=== PATIENT | male | born 1935 | race African-American/Black ===

== ENCOUNTER 2020-05-27 21:42 | Inpatient (IN) | payer MEDICARE ==
[2020-05-27 23:39] LABS: Hematocrit 42.9 % (35.5-45.6); Hemoglobin 14.5 gm/dl (11.8-15.2); Mean Corpuscular HGB Conc 34 % (32-34); Mean Corpuscular Volume 90 fl (84-94); Platelet Count 210 K/mm3 (140-440); Red Blood Count 4.75 M/mm3 (3.65-5.03)
[2020-05-28 00:01] LABS: Calcium 9.2 mg/dL (8.4-10.2)
[2020-05-28] MEDS ORDERED: ACETAMINOPHEN 500 MG TAB PO ONE (01:39)
[2020-05-28] MEDS ORDERED: SODIUM CHLORIDE 0.9% 500 ML 500 ML IV ONE (01:39)
--- NOTE | 2020-05-28 01:40 | Emergency Department Report ---
ED Fever HPI - General Chief Complaint: Fever Stated Complaint: FEVER Time Seen by Provider: 05/28/20 01:34 Source: patient, family ([id number] give history) Exam Limitations: no limitations - History of Present Illness Initial Comments: This is an 84-year-old male with history of hypertension lipidemia osteoarthritis who presents with fever chills which began today. He denies cough. Denies shortness of breath. No known sick contacts. He denies abdominal pain. He states that he feels better now. Patient denies headache, cough, chest pain, abdominal pain. In 2012 according to electronic medical record, patient was treated for liver abscess and sepsis. I use language phone line for [place] interpretation. Timing/Duration: this afternoon Fever Severity/Quality: subjective Fever Therapy ASSET MANAGER: none Associated Symptoms: denies symptoms ED Review of Systems ROS: Stated complaint: FEVER Other details as noted in HPI Comment: All other systems reviewed and negative Constitutional: chills, fever Respiratory: denies: cough, shortness of breath Cardiovascular: denies: chest pain Gastrointestinal: denies: abdominal pain, nausea, vomiting ED Past Medical Hx - Past Medical History Previous Medical History?: Yes Hx Hypertension: Yes Hx Deep Vein Thrombosis: No Hx Arthritis: Yes Hx HIV: No Additional medical history: High cholesterol - Surgical History Past Surgical History?: Yes Hx Pacemaker: No Hx Internal Defibrillator: No Hx Appendectomy: Yes - Social History Smoking Status: Former Smoker Substance Use Type: None - Medications Home Medications: Home Medications Medication Instructions Recorded Confirmed Last Taken Type Aspirin [Aspirin BABY CHEW TAB] 81 mg PO QDAY 07/17/13 07/17/13 07/16/13 History 0900 Omeprazole [PriLOSEC] 20 mg PO BID 07/17/13 07/17/13 07/16/13 09:00 History 20 mg Pregabalin [Lyrica] 50 mg PO 07/17/13 07/17/13 07/16/13 21:00 History 50 mg Simvastatin 20 mg PO QDAY 07/17/13 07/17/13 07/16/13 History 20 mg lisinopriL [Zestril TAB] 5 mg PO QDAY #30 tablet 07/31/13 Unknown Rx ED Physical Exam - General Limitations: No Limitations General appearance: alert, in no apparent distress, other (appears well, mobile, nontoxic) - Head Head exam: Present: atraumatic, normocephalic - Eye Eye exam: Present: other (right eye: no injection left eye: enucleated) - ENT ENT exam: Present: mucous membranes moist - Neck Neck exam: Present: normal inspection, full ROM - Respiratory Respiratory exam: Present: normal lung sounds bilaterally. Absent: respiratory distress, wheezes, rales, rhonchi - Cardiovascular Cardiovascular Exam: Present: regular rate, normal rhythm, normal heart sounds. Absent: systolic murmur, diastolic murmur, rubs, gallop - GI/Abdominal GI/Abdominal exam: Present: soft, normal bowel sounds. Absent: distended, tenderness, guarding, rebound - Rectal Rectal exam: Present: deferred - Extremities Exam Extremities exam: Present: normal inspection - Neurological Exam Neurological exam: Present: alert, oriented X3 - Psychiatric Psychiatric exam: Present: normal affect, normal mood - Skin Skin exam: Present: warm, dry, intact, normal color. Absent: rash ED Course Vital Signs 05/27/20 22:23 Temperature 100.7 F H Pulse Rate 105 H Respiratory 18 Rate Blood Pressure 143/78 O2 Sat by Pulse 91 Oximetry ED Medical Decision Making - Lab Data Result diagrams: 05/27/20 23:08 05/27/20 23:08 - Medical Decision Making This is an 84-year-old male who presents with Sirs hypoxia. Considering our current pandemic COVID-19 high suspicion. Appropriate contact droplet precaut ions instituted. Antibiotics ceftriaxone and azithromycin ordered to cover for possible pyelonephritis seen on CT scan as well as community-acquired pneumonia. Admitted to the hospitalist service in fair condition. Critical care attestation.: If time is entered above; I have spent that time in minutes in the direct care of this critically ill patient, excluding procedure time. ED Disposition Clinical Impression: SIRS (systemic inflammatory response syndrome), Acute respiratory failure with hypoxia, Suspected COVID-19 virus infection Disposition: OP ADMIT IP TO THIS HOSP Is pt being admited?: Yes Does the pt Need Aspirin: No Condition: Stable
--- NOTE | 2020-05-28 02:32 | Cat Scan Report ---
CT abdomen pelvis wo con, CT chest wo con INDICATION: fever elderly. TECHNIQUE: All CT scans at this location are performed using CT dose reduction for ALARA by means of automated e xposure control. COMPARISON: None available. FINDINGS: CT CHEST: No mediastinal, hilar or axillary adenopathy on this noncontrast exam. No pleural fluid. No significa nt parenchymal disease. CT ABDOMEN: Single large stone in the gallbladder. Left hepatic lobe cyst. Spleen, pancreas, right kidney and adr enals appear negative. There is mild perinephric stranding on the left but no hydronephrosis or renal calculi. Mild ectasia of the infrarenal abdominal aorta, maximum diameter 2.7 cm. Pelvis Cecum is high in the right abdomen, and the appendix cannot be identified. Urinary bladder and distal ureters are negative. Small left inguinal hernia contains only fat. No free fluid or inflammation. N o obvious bowel abnormalities. IMPRESSION: 1. Mild perinephric stranding on the left, without hydronephrosis or renal calculus. With the given h istory, possibility of left pyelonephritis should be considered. 2. Cholelithiasis without evidence of cholecystitis. 3. No acute abnormalities in the chest.. Signer Name: Danis Shrestha MD Signed: 05/28/2020 2:28 AM Workstation Name: [id number]
[2020-05-28 03:43] LABS: Band Neutrophils # (Manual) 0.3 K/mm3; Basophils % (Manual) 0 % (0.0-1.8); Total Cells Counted 100
[2020-05-28 03:46] LABS: Platelet Estimate Consistent w Auto
[2020-05-28 04:23] LABS: Bacteria,Urine 1+ /HPF (Negative); Bilirubin,Urine NEG (Negative); Blood,Urine SM (Negative); Color,Urine Yellow (Yellow); Mucus,Urine FEW /HPF; Urobilinogen,Urine < 2.0 mg/dL (<2.0)
[2020-05-28] MEDS ORDERED: AZITHROMYCIN 500 MG in SODIUM CHLORIDE 0.9% 250ML 250 ML IV ONE (04:52)
[2020-05-28 07:09] LABS: C-Reactive Protein 2.5 mg/dL (0.00-1.30)
[2020-05-28] MEDS ORDERED: cefTRIAXone/NS 1 GM/50 ML 1 GM/50 ML BAG IV SCH (10:00)
--- NOTE | 2020-05-28 11:41 | History and Physical Report ---
History of Present Illness Date of examination: 05/28/20 Date of admission: 05/28/20 07:40 Chief complaint: Fever and chills History of present illness: This is an 84-year-old male seen at bedside. he was on the phone and on room air at time of assessment. Patient little or no [place]. I spoke with the daughter who said that patient had fever and chills -ongoing for 3 to 4d days. He has past medical hx hypertension lipidemia osteoarthritis. on assessment, He d enies cough, shortness of breath and n/v. patient appears stable and not in any distress. per patient -electronic medical record, patient was treated for liver abscess and sepsis and was treated with abx ED Work up shows; WBC 8.5, hemoglobin 14.5, d-dimer 577.91, Potassium 3.0 LDH 210, CRP 2.50, prolactonin 2.90 CT of the abdomen-shows pyelonephritis UA -shows elevated urine WBC and bacteria Past History Past Medical History: diabetes, hypertension, hyperlipidemia, other (liver abscess) Past Surgical History: Other (left eye surgery-due to truama from fall) Social history: no significant social history Medications and Allergies Allergies Allergy/AdvReac Type Severity Reaction Status Date / Time No Known Allergies Allergy Verified 07/17/13 05:59 Home Medications Medication Instructions Recorded Confirmed Last Taken Type Colchicine 0.6 mg PO QDAY 05/28/20 05/28/20 05/27/20 History Famotidine [Pepcid] 20 mg PO QDAY 05/28/20 05/28/20 05/27/20 History Simvastatin 20 mg PO QDAY 05/28/20 05/28/20 05/27/20 History amLODIPine [Norvasc] 5 mg PO DAILY 05/28/20 05/28/20 05/27/20 History atenoloL [Tenormin] 25 mg PO DAILY 05/28/20 05/28/20 05/27/20 History hydroCHLOROthiazide 12.5 mg PO QDAY 05/28/20 05/28/20 05/27/20 History [Hydrochlorothiazide] Active Meds: Active Medications Ceftriaxone Sodium (Rocephin/Ns 1 Gm/50 Ml) 1 gm in 50 mls @ 100 mls/hr IV Q24HR [facility]; Protocol Stop: 05/30/20 10:29 Review of Systems Eyes: left: blurred vision, decreased vision, loss of peripheral vision Cardiovascular: high blood pressure Exam - Constitutional Vitals: Temp Pulse Resp BP Pulse Ox 97.5 F L 71 18 148/73 98 05/28/20 10:22 05/28/20 10:22 05/28/20 10:22 05/28/20 10:22 05/28/20 10:22 General appearance: Present: no acute distress, well-nourished - EENT Eyes: Present: discharge (left eye) ENT: hearing intact, clear oral mucosa - Neck Neck: Present: supple, normal ROM - Respiratory Respiratory effort: normal Respiratory: bilateral: CTA - Cardiovascular Heart rate: 76 Heart Sounds: Present: S1 & S2. Absent: rub, click - Extremities Extremities: pulses symmetrical, No edema Peripheral Pulses: within normal limits - Abdominal General gastrointestinal: Present: soft, non-tender, non-distended, normal bowel sounds Male genitourinary: Present: normal - Integumentary Integumentary: Present: clear, warm, dry - Musculoskeletal Musculoskeletal: gait normal, strength equal bilaterally - Psychiatric Psychiatric: appropriate mood/affect, intact judgment & insight - Neurologic Neurologic: CNII-XII intact, moves all extremities - Allied Health Allied health notes reviewed: nursing HEART Score - HEART Score History: Slightly suspicious Results - Labs CBC & Chem 7: 05/27/20 23:08 05/28/20 06:01 Labs: Abnormal lab results 05/27/20 05/27/20 05/28/20 Range/Units 23:08 23:08 01:43 Seg Neuts % (Manual) 90.0 H (40.0-70.0) % Lymphocytes % (Manual) 4.0 L (13.4-35.0) % Lymphocytes # (Manual) 0.3 L (1.2-5.4) K/mm3 D-Dimer (0-234) ng/mlDDU Potassium 3.0 L (3.6-5.0) mmol/L BUN 31 H (9-20) mg/dL Glucose 138 H (75-100) mg/dL Lactic Acid 3.10 H* (0.7-2.0) mmol/L Lactate Dehydrogenase (91-180) units/L C-Reactive Protein (0.00-1.30) mg/dL Urine WBC (Auto) (0.0-6.0) /HPF 05/28/20 05/28/20 05/28/20 Range/Units 06:01 06:01 Unknown Seg Neuts % (Manual) (40.0-70.0) % Lymphocytes % (Manual) (13.4-35.0) % Lymphocytes # (Manual) (1.2-5.4) K/mm3 D-Dimer 577.91 H (0-234) ng/mlDDU Potassium (3.6-5.0) mmol/L BUN (9-20) mg/dL Glucose 121 H (75-100) mg/dL Lactic Acid (0.7-2.0) mmol/L Lactate Dehydrogenase 210 H (91-180) units/L C-Reactive Protein 2.50 H (0.00-1.30) mg/dL Urine WBC (Auto) 7.0 H (0.0-6.0) /HPF Assessment and Plan - Patient Problems (1) Acute respiratory failure with hypoxia Current Visit: Yes Status: Acute Plan to address problem: respiratory care-ABG Supplement oxygen per N/C PRN (2) SIRS (systemic inflammatory response syndrome) Current Visit: Yes Status: Acute Plan to address problem: Fever and chills improved Elevated antiinflammatories makers likely 2/2 to UTI Continue abx therapy -empiric Monitor v/s and temperature (3) Suspected COVID-19 virus infection Current Visit: Yes Status: Acute Plan to address problem: Elevated inflammatory makers Trend d-dimer, CRP, LDH Prolactinin n-normal Covid test pending (4) Urinary tract infection Current Visit: Yes Status: Acute Plan to address problem: Continue IV abx therapy Urine culture F/U with result Bolood culture-result pending (5) DM type 2 (diabetes mellitus, type 2) Current Visit: No Status: Acute Plan to address problem: Monitor blood sugar With SSI patient daughter said pts said pt blood sugar is diet controled HGA1c ordered-will follow up with result patient is not on home antiglycemia (6) HLD (hyperlipidemia) Current Visit: No Status: Chronic Plan to address problem: continue statin (7) DVT prophylaxis Current Visit: Yes Status: Acute Plan to address problem: Lovenox
[2020-05-28] MEDS ORDERED: FAMOTIDINE 20 MG TAB PO SCH (12:00)
[2020-05-28 12:52] LABS: Chol/HDL Ratio 3.84 %
[2020-05-28] MEDS ORDERED: amLODIPine 5 MG TAB PO SCH (13:00)
[2020-05-28] MEDS ORDERED: POTASSIUM CHLORIDE ER 20 MEQ TAB PO ONE (16:19)
[2020-05-28] MEDS: ENOXAPARIN 30 MG/0.3 ML INJ SUB-Q SCH (16:30)
[2020-05-28] MEDS: FAMOTIDINE 20 MG TAB PO SCH (16:30)
[2020-05-28] MEDS: COLCHICINE 0.6 MG CAP PO SCH (16:31)
[2020-05-28] MEDS: INSULIN LISPRO 100 UNIT/ML VIAL 3 mL SUB-Q SCH ×2 (16:40→21:47)
[2020-05-28] MEDS: ACETAMINOPHEN 325 MG TAB PO PRN (21:48)
[2020-05-28] MEDS: PRAVASTATIN 40 MG TAB PO SCH (21:48)
[2020-05-29] MEDS: ACETAMINOPHEN 325 MG TAB PO PRN ×2 (06:16→22:12)
[2020-05-29] MEDS: INSULIN LISPRO 100 UNIT/ML VIAL 3 mL SUB-Q SCH ×4 (07:30→22:15)
--- NOTE | 2020-05-29 07:38 | Progress Note ---
Assessment and Plan - Patient Problems (1) Acute respiratory failure with hypoxia Current Visit: Yes Status: Acute Plan to address problem: On room air without distress Supplement oxygen per N/C PRN (2) SIRS (systemic inflammatory response syndrome) Current Visit: Yes Status: Acute Plan to address problem: Fever and chills resolve Elevated antiinflammatories makers likely 2/2 to UTI Continue abx therapy -empiric Monitor v/s and temperature (3) Suspected COVID-19 virus infection Current Visit: Yes Status: Acute Plan to address problem: Elevated inflammatory makers Trend d-dimer, CRP, LDH Prolactinin n-normal Covid test-negative (4) Urinary tract infection Current Visit: Yes Status: Acute Plan to address problem: Continue IV abx therapy Urine culture F/U with result Bolood culture-result pending (5) DM type 2 (diabetes mellitus, type 2) Current Visit: No Status: Acute Plan to address problem: Monitor blood sugar With SSI patient daughter said pts said pt blood sugar is diet controled HGA1c ordered-6.2 patient is not on home antiglycemia (6) HLD (hyperlipidemia) Current Visit: No Status: Chronic Plan to address problem: continue statin (7) DVT prophylaxis Current Visit: Yes Status: Acute Plan to address problem: Lovenox (8) Hypertension Current Visit: Yes Status: Acute Plan to address problem: monitor blood pressure Amlodipin increased to 10 mg daily (9) Hypokalemia Current Visit: Yes Status: Acute Plan to address problem: Replace potassium Am lab-monitor electrolytes Subjective Date of service: 05/29/20 Principal diagnosis: Fever/chills Interval history: Reviewed lab, mar, and v/s. Patient seen at bedside-pt not in any distress- condition stable pt lab values stable-Normal WBC and mild elevated BP Will adjust BP med-will d/c if stable Potassium was replaced-BMP today Possible d/c tomorrow if patient is stable. Objective - Constitutional Vitals: Vital Signs - 12hr 05/28/20 05/28/20 05/29/20 21:15 23:21 05:53 Temperature 98.1 F 98.8 F Pulse Rate 71 70 Pulse Rate [ 71 Right Brachial] Respiratory 22 22 20 Rate Blood Pressure 146/85 161/77 O2 Sat by Pulse 95 95 97 Oximetry General appearance: Present: no acute distress, well-nourished - EENT Eyes: PERRL, EOM intact ENT: hearing intact, clear oral mucosa Ears: bilateral: normal - Neck Neck: supple, normal ROM - Respiratory Respiratory effort: normal Respiratory: bilateral: CTA - Breasts Breasts: normal - Cardiovascular Rhythm: regular Heart Sounds: Present: S1 & S2. Absent: gallop, rub Extremities: pulses intact, No edema, normal color, Full ROM - Gastrointestinal General gastrointestinal: Present: soft, non-tender, non-distended, normal bowel sounds - Genitourinary Male genitourinary: normal - Integumentary Integumentary: clear, warm, dry - Musculoskeletal Musculoskeletal: 1, strength equal bilaterally - Neurologic Neurologic: moves all extremities - Psychiatric Psychiatric: memory intact, appropriate mood/affect, intact judgment & insight - Labs CBC & Chem 7: 05/27/20 23:08 05/28/20 06:01 Labs: Abnormal lab results 05/28/20 05/28/20 Range/Units 06:28 12:00 Hemoglobin A1c 6.2 H (4-6) % Triglycerides 160 H (2-149) mg/dL HDL Cholesterol 39 L (40-59) mg/dL
[2020-05-29] MEDS: ENOXAPARIN 30 MG/0.3 ML INJ SUB-Q SCH (09:10)
[2020-05-29] MEDS: FAMOTIDINE 20 MG TAB PO SCH (09:11)
[2020-05-29] MEDS: cefTRIAXone/NS 2 GM/100 ML 2 GM/100 ML BAG IV SCH (09:11)
[2020-05-29] MEDS: amLODIPine 10 MG TAB PO SCH (09:11)
[2020-05-29] MEDS: COLCHICINE 0.6 MG CAP PO SCH (10:00)
[2020-05-29 16:22] LABS: BUN/Creatinine Ratio 18; Blood Urea Nitrogen 20 mg/dL (9-20); Calcium 8.9 mg/dL (8.4-10.2); Hemolysis Index 23
[2020-05-29] MEDS: PRAVASTATIN 40 MG TAB PO SCH (22:12)
[2020-05-30] MEDS: INSULIN LISPRO 100 UNIT/ML VIAL 3 mL SUB-Q SCH ×2 (07:30→11:30)
[2020-05-30] MEDS: cefTRIAXone/NS 2 GM/100 ML 2 GM/100 ML BAG IV SCH (09:22)
[2020-05-30] MEDS: ENOXAPARIN 30 MG/0.3 ML INJ SUB-Q SCH (09:24)
[2020-05-30] MEDS: FAMOTIDINE 20 MG TAB PO SCH (09:24)
[2020-05-30] MEDS: amLODIPine 10 MG TAB PO SCH (09:24)
[2020-05-30] MEDS: COLCHICINE 0.6 MG CAP PO SCH (09:25)
[2020-05-30 09:26] LABS: Basophils # (Auto) 0.1 K/mm3 (0.0-0.1); Basophils % (Auto) 1.3 % (0.0-1.8); Eosinophils # (Auto) 0.4 K/mm3 (0.0-0.4); Eosinophils % (Auto) 6.4 % (0.0-4.3); Hematocrit 42.4 % (35.5-45.6); Hemoglobin 14.3 gm/dl (11.8-15.2); Lymphocytes % (Auto) 17.9 % (13.4-35.0); Mean Corpuscular HGB Conc 34 % (32-34); Mean Corpuscular Volume 91 fl (84-94); Monocytes # (Auto) 0.5 K/mm3 (0.0-0.8); Monocytes % (Auto) 7.8 % (0.0-7.3); Platelet Count 165 K/mm3 (140-440); Red Blood Count 4.69 M/mm3 (3.65-5.03); Red Cell Distribution Width 15.1 % (13.2-15.2)
[2020-05-30] MEDS ORDERED: METOPROLOL TARTRATE 25 MG TAB PO SCH (10:00)
[2020-05-30] MEDS ORDERED: ENOXAPARIN 40 MG/0.4 ML INJ SUB-Q SCH (10:00)
--- NOTE | 2020-05-30 14:30 | Discharge Summary ---
Providers - Providers Date of Admission: 05/28/20 07:40 Attending physician: JANELLE GARCIA Primary care physician: FANNY OWEN Hospitalization Condition: Stable Pertinent studies: 05/28 CT abd/pelvis: mild perinephric stranding on the left, without hydronephrosis or renal calculus. With the given history, possibility of left pyelonephritis should be considered. 2. Cholelithiasis without evidence of cholecystitis. 3. No acute abnormalities in the chest. 05/28 CTA chest: CT CHEST: No mediastinal, hilar or axillary adenopathy on this noncontrast exam. No pleural fluid. No significant parenchymal disease. CT ABDOMEN: Single large stone in the gallbladder. Left hepatic lobe cyst. Spleen, pancreas, right kidney and adrenals appear negative. There is mild perinephric stranding on the left but no hydronephrosis or renal calculi. Mild ectasia of the infrarenal abdominal aorta, maximum diameter 2.7 cm. Pelvis Cecum is high in the right abdomen, and the appendix cannot be identified. Urinary bladder and distal ureters are negative. Small left inguinal hernia contains only fat. No free fluid or inflammation. No obvious bowel abnormalities. IMPRESSION: 1. Mild perinephric stranding on the left, without hydronephrosis or renal calculus. With the given history, possibility of left pyelonephritis should be considered. 2. Cholelithiasis without evidence of cholecystitis. 3. No acute abnormalities in the chest. Hospital course: This is an 84-year-old male with diabetes, hypertension, hyperlipidemia, OA, liver abscess and left glass eye s/p trauma. The admitting OPERATIONS SPECIALIST spoke with the daughter who said that patient had fever and chills for about ongoing 3-4 days. Work up in the ED revealed WBC 8.5, hemoglobin 14.5, d-dimer 577.91, Potassium 3.0, LDL 210, CRP 2.50, procalcitonin 2.90, urinalysis shows elevated urine WBC and bacteria and a CT of the abdomen showed pyelonephritis. He was started on ceftriaxone and will be discharged with Ceftin 500 mg twice a day for 3 days to complete antibiotic therapy for his urinary tract infection. He will need to follow-up with his primary care physician within 1 to 2 weeks of discharge. Assessment and Plan - Patient Problems (1) Acute respiratory failure with hypoxia Current Visit: Yes Status: Resolved Plan to address problem: Patient is on room air without any distress (2) SIRS (systemic inflammatory response syndrome) Current Visit: Yes Status: Resolved Plan to address problem: Patient has subjective fevers and chills prior to admission Elevated antiinflammatories makers likely 2/2 to UTI He will be discharged with Ceftin 500 mg twice daily for 3 days (3) Suspected COVID-19 virus infection Current Visit: Yes Status: Resolved Plan to address problem: Admitted with elevated inflammatory makers hwoever his Prolactinin was normal 05/28 COVID-19 PCR negative (4) Urinary tract infection Current Visit: Yes Status: Acute Plan to address problem: Received IV antibiotic therapy while inpatient Will be discharged with Ceftin 500 mg twice a day for 3 days 05/28 urine culture with no growth after 48 hours 05/28 blood cultures with no growth after 48 hours (5) DM type 2 (diabetes mellitus, type 2) Current Visit: No Status: Acute Plan to address problem: According to the patient's daughter his diabetes is diet-controlled 05/27 Hemoglobin A1c 6.2 Follow-up with your primary care physician for further testing (6) HLD (hyperlipidemia) Current Visit: No Status: Chronic Plan to address problem: Continue home statin therapy (7) Hypertension Current Visit: Yes Status: Chronic Plan to address problem: Will be discharged with amlodipine 10 mg daily and Valsartan 160 mg qday, continue your home atenolol Stop hydrochlorothiazide Follow-up with primary care physician as patient was started on antihypertensive regimen prior to admission Pressure monitoring per primary care physician (9) Hypokalemia Current Visit: Yes Status: Resolved Plan to address problem: 05/29 potassium 3, repleted 05/30 potassium 3.9 Disposition: DC-01 TO HOME OR SELFCARE Time spent for discharge: 35 Core Measure Documentation - Palliative Care Palliative Care/ Comfort Measures: Not Applicable - Core Measures Any of the following diagnoses?: none Exam - Constitutional Vitals: Temp Pulse Resp BP Pulse Ox 97.7 F 72 22 155/84 97 05/30/20 11:16 05/30/20 11:16 05/30/20 11:16 05/30/20 11:16 05/30/20 11:16 General appearance: Present: no acute distress - EENT Eyes: Present: EOM intact ENT: clear oral mucosa, hearing decreased, poor dentition - Neck Neck: Present: supple, normal ROM - Respiratory Respiratory effort: normal Respiratory: bilateral: CTA - Cardiovascular Rhythm: regular Heart Sounds: Present: S1 & S2. Absent: systolic murmur, diastolic murmur - Extremities Extremities: no ischemia, pulses intact, pulses symmetrical, No edema, normal temperature, normal color, Full ROM Peripheral Pulses: within normal limits - Abdominal General gastrointestinal: Present: soft, non-tender, non-distended, normal bowel sounds - Integumentary Integumentary: Present: clear, warm, dry - Musculoskeletal Musculoskeletal: strength equal bilaterally - Psychiatric Psychiatric: appropriate mood/affect, cooperative - Neurologic Neurologic: CNII-XII intact, no focal deficits, moves all extremities - Allied Health Allied health notes reviewed: nursing Plan Activity: advance as tolerated Diet: diabetic Special Instructions: record daily BP diary, record blood sugar diary Additional Instructions: Contact your primary care physician or present to your nearest emergency department if you experience worsening symptoms. Follow-up with your primary care physician within 1 to 2 weeks of discharge. Follow up with: LULU LUCIA MD [Referring] - 3-5 Days Prescriptions: Pravastatin [Pravachol] 40 mg PO QHS #30 tablet amLODIPine 10 mg PO QDAY #30 tablet Valsartan [Diovan] 160 mg PO QDAY #30 tablet Famotidine [Pepcid] 20 mg PO QDAY #30 Famotidine [Pepcid] 20 mg PO QDAY #30 tablet atenoloL [Tenormin] 25 mg PO DAILY #30 tab
[2020-05-30 17:48] VITALS: BP 167/95
[2020-05-31] MEDS ORDERED: ENOXAPARIN 40 MG/0.4 ML INJ SUB-Q SCH (10:00)
== END 2020-05-30 17:00 | disposition home or self-care (01) | DRG 689 ==
LOC: ED 21:42 → OBSVTOIN 05-28 07:40 → 3A 05-28 07:40
PROVIDERS: ADMIT Internal Medicine; ATTEND Internal Medicine
DX: N12 Tubulo-interstitial nephritis, not specified as acute or chronic (principal); J96.01 Acute respiratory failure with hypoxia; R65.10 Systemic inflammatory response syndrome (SIRS) of non-infectious origin without acute organ dysfunction; E87.6 Hypokalemia; E11.9 Type 2 diabetes mellitus without complications; I10 Essential (primary) hypertension; M19.90 Unspecified osteoarthritis, unspecified site; Z20.828 Contact with and (suspected) exposure to other viral communicable diseases; E78.5 Hyperlipidemia, unspecified; Z79.899 Other long term (current) drug therapy; Z90.49 Acquired absence of other specified parts of digestive tract; Z79.82 Long term (current) use of aspirin
CPT/HCPCS: 36415; 71250; 74176; 80048; 80061; 81001; 82140; 82728; 82947; 82962; 83036; 83615; 84145; 85007; 85025; 85379; 86140; 87040; 87086; G0378; A9270-GY; J0456; J0696; J1650; J7040; J7050; U0003-CS